=== PATIENT | female | born 1965 | race Caucasian/White ===

== ENCOUNTER 2022-01-04 14:18 | Emergency (ER) | payer OTHER ==
[2022-01-04 14:39] VITALS: BP 167/92; PULSE 106; TEMP 98.2; BMI 27.4
[2022-01-04] MEDS ORDERED: ALPRAZolam 1 MG TABLET PO PRN (15:51)
[2022-01-04] MEDS ORDERED: ALPRAZolam 1 MG TABLET ONE (16:25)
== END 2022-01-04 17:15 | disposition home or self-care (01) ==
LOC: JER 14:18
DX: F41.9 Anxiety disorder, unspecified (principal)
CPT/HCPCS: 99283-25